=== PATIENT | male | born 1995 | race Caucasian/White ===

== ENCOUNTER 2019-01-01 11:33 | Emergency (ER) | payer BC, SELFPAY ==
[2019-01-01] MEDS ORDERED: FENTANYL CITR 100 MCG/2 ML ONE (11:46)
[2019-01-01] MEDS ORDERED: HYDROMORPHONE HCL 1 MG/ML INJ ONE ×2 (11:50→12:47)
[2019-01-01] MEDS ORDERED: ONDANSETRON 4 MG/2 ML VIAL ONE (11:55)
[2019-01-01] MEDS ORDERED: NA CHLORIDE 0.9% 1,000 ML ONE (12:19)
--- NOTE | 2019-01-01 13:06 | RAD REPORT ---
EXAM DESCRIPTION: RAD - Ankle Right 3 View - 01/01/2019 12:45 pm CLINICAL HISTORY: Right ankle pain FINDINGS: Medial clear space is widened indicating an injury to the deltoid ligament. Comminuted mildly to moderately displaced fracture involves the proximal to mid fibula.
--- NOTE | 2019-01-01 13:07 | RAD REPORT ---
EXAM DESCRIPTION: RAD - Tib Fib Right - 01/01/2019 12:46 pm CLINICAL HISTORY: Right leg pain . FINDINGS: Medial clear space is widened indicating an injury to the deltoid ligament. Comminuted mildly to moderately displaced fracture involves the proximal to mid fibula.
--- NOTE | 2019-01-01 13:09 | RAD REPORT ---
EXAM DESCRIPTION: RAD - Knee Right 3 View - 01/01/2019 12:45 pm CLINICAL HISTORY: Right knee pain FINDINGS: Linear bony/calcific density adjacent to the distal medial diametaphysis right femur may b e the sequela of old trauma. It is unlikely to be acute. This should correlated clinically. Significant joint effusion is not present. No dislocation Splint mildly obscures detail.
--- NOTE | 2019-01-01 13:24 | ER ---
Nurse's Notes 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 11:30 Transition of care: patient was not received from another setting of care. Onset of hj symptoms was January 01, 2019. Risk Assessment: Do you want to hurt yourself or someone else? Patient reports no desire to harm self or others. Initial Sepsis Screen: Does the patient meet any 2 criteria? No. Patient's initial sepsis screen is negative. Does the patient have a suspected source of infection? No. Patient's initial sepsis screen is negative. Care prior to arrival: None. 11:30 Method Of Arrival: EMS: [facility] 11:30 Acuity: CARISA 2 hj Triage Assessment: 11:30 General: Appears in no apparent distress. uncomfortable, Behavior is cooperative, hj appropriate for age, anxious. Pain: Complains of pain in right ankle and anterior aspect of right ankle Pain currently is 10 out of 10 on a pain scale. 11:30 Musculoskeletal: hj Historical: - Allergies: 11:46 PENICILLINS; hj - Home Meds: 11:46 None [Active]; hj - PMHx: 11:46 None; hj - PSHx: 11:46 None; hj - Immunization history:: Adult Immunizations up to date. - Social history:: Smoking status: Patient/guardian denies using tobacco, Patient/guardian denies using alcohol. - Ebola Screening: : Patient negative for fever greater than or equal to 101.5 degrees Fahrenheit, and additional compatible Ebola Virus Disease symptoms Patient denies exposure to infectious person Patient denies travel to an Ebola-affected area in the 21 days before illness onset. Screenin:47 Abuse screen: Denies threats or abuse. Denies injuries from another. Nutritional hj screening: No deficits noted. Tuberculosis screening: No symptoms or risk factors identified. Fall Risk None identified. Assessment: 11:30 General: Appears in no apparent distress. uncomfortable, Behavior is cooperative, hj appropriate for age, anxious. Pain: Complains of pain in anterior aspect of right ankle and right ankle. Neuro: Level of Consciousness is awake, alert, obeys commands, Oriented to person, place, time, situation, Appropriate for age. Cardiovascular: Capillary refill < 3 seconds Patient's skin is warm and dry. Respiratory: Airway is patent Respiratory effort is even, unlabored, Respiratory pattern is regular, symmetrical. GI: No signs and/or symptoms were reported involving the gastrointestinal system. : No signs and/or symptoms were reported regarding the genitourinary system. EENT: No signs and/or symptoms were reported regarding the EENT system. Derm: No signs and/or symptoms reported regarding the dermatologic system. Musculoskeletal: Reports pain in right leg and anterior aspect of right ankle and right ankle. 11:32 Reassessment: TRAUMA ALERT CALLED. 12:30 Reassessment: Patient and/or family updated on plan of care and expected duration. Pain hj level reassessed. Patient is alert, oriented x 3, equal unlabored respirations, skin warm/dry/pink. Patient states feeling better. Patient states symptoms have improved. 13:30 Reassessment: Patient and/or family updated on plan of care and expected duration. Pain hj level reassessed. Patient is alert, oriented x 3, equal unlabored respirations, skin warm/dry/pink. for D/C;. 13:37 Reassessment: PT D/C HOME VIA WHEELCHAIR WITH FAMILY, DX WITH COMMINUTED FIBULA FX. bp Vital Signs: 11:30 BP 118 / 79; Pulse 71; Resp 18; Temp 98.2(TE); Pulse Ox 100% on R/A; Weight 108.86 kg; hj Height 5 ft. 10 in. (177.80 cm); Pain 1010; 11:30 Body Mass Index 34.44 (108.86 kg, 177.80 cm) ED Course: 11:30 Patient has correct armband on for positive identification. Bed in low position. Call light in reach. Side rails up X2. 11:30 Inserted saline lock: 18 gauge in right antecubital area, using aseptic technique. 11:30 Orthoglass splint: stirrup splint applied on right leg. bp 11:36 Patient arrived in ED. hb 11:38 Ivan Harden MD is Attending Physician. gs 11:46 Triage completed. hj 11:47 Arm band placed on right wrist. hj 11:48 Braxton Linares, OG is Primary Nurse. bp 12:45 Ankle Right 3 View XRAY In Process Unspecified. EDMS 12:45 Knee Right 3 View XRAY In Process Unspecified. EDMS 12:46 Tib Fib Right XRAY In Process Unspecified. EDMS 13:19 Checo Connor MD is Referral Physician. gs 13:28 No provider procedures requiring assistance completed. IV discontinued, intact, hj bleeding controlled, No redness/swelling at site. Pressure dressing applied. 13:39 Crutch training done. bp Administered Medications: 11:30 Drug: fentaNYL (PF) 100 mcg Route: IVP; Site: right antecubital; hj 11:54 Follow up: Response: Pain is decreased hj 11:35 Drug: Dilaudid 1 mg Route: IVP; Site: right antecubital; hj 11:54 Follow up: Response: No adverse reaction; Pain is decreased hj 11:40 Drug: Zofran 4 mg Route: IVP; Site: right antecubital; hj 11:54 Follow up: Response: No adverse reaction hj 11:49 Not Given (Duplicate Order): Dilaudid 1 mg IVP once bp 11:49 Not Given (Duplicate Order): fentaNYL (PF) 100 mcg IVP once bp 12:00 Drug: NS 0.9% 1000 ml Route: IV; Rate: 1 bolus; Site: right antecubital; bp 13:30 Follow up: IV Status: Completed infusion; IV Intake: 1000ml hj 12:26 Drug: Dilaudid 1 mg Route: IVP; Site: right antecubital; hj 12:35 Follow up: Response: No adverse reaction hj 13:31 Follow up: Response: No adverse reaction; Pain is decreased hj Intake: 13:30 IV: 1000ml; Total: 1000ml. hj Outcome: 13:24 Discharge ordered by . gs 13:28 Discharged to home with crutches, with family. hj 13:28 Condition: stable 13:28 Discharge instructions given to patient, family, Instructed on discharge instructions, follow up and referral plans. medication usage, Demonstrated understanding of instructions, follow-up care, medications, crutch walking, Prescriptions given X 1. 13:39 Patient left the ED. bp Signatures: Dispatcher [employer] EDMS Jamie Schultz RN RN hj Baxter, Heather, RN RN hb Starr, Gregory, MD MD gs Peltier, Brian, RN RN bp
--- NOTE | 2019-01-01 13:25 | EDPHYS ---
Physician Documentation [facility] Name: Kai Alonzo Age: 23 yrs Sex: Male : 1995 Arrival Date: 01/01/2019 Time: 11:36 Bed 6 Private MD: ED Physician Ivan Harden HPI: 01/01 13:27 This 23 yrs old Male presents to ER via EMS with complaints of Ankle Injury. gs 13:27 The patient presents with a deformity, an injury. The complaints affect the right gs ankle. Onset: The symptoms/episode began/occurred acutely, just prior to arrival. Context: resulted from the patient falling, skim boarding, The mechanism of injury is unknown. Associated signs and symptoms: Pertinent positives: swelling. Modifying factors: the symptoms are aggravated by movement. Severity of symptoms: At their worst the symptoms were incapacitating, in the emergency department the symptoms are unchanged. The patient has not experienced similar symptoms in the past. Historical: - Allergies: 11:46 PENICILLINS; hj - Home Meds: 11:46 None [Active]; hj - PMHx: 11:46 None; hj - PSHx: 11:46 None; hj - Immunization history:: Adult Immunizations up to date. - Social history:: Smoking status: Patient/guardian denies using tobacco, Patient/guardian denies using alcohol. - Ebola Screening: : Patient negative for fever greater than or equal to 101.5 degrees Fahrenheit, and additional compatible Ebola Virus Disease symptoms Patient denies exposure to infectious person Patient denies travel to an Ebola-affected area in the 21 days before illness onset. ROS: 13:27 All other systems are negative. gs Exam: 13:27 Head/Face: Normocephalic, atraumatic. Eyes: Pupils equal round and reactive to light, gs extra-ocular motions intact. Lids and lashes normal. Conjunctiva and sclera are non-icteric and not injected. Cornea within normal limits. Periorbital areas with no swelling, redness, or edema. ENT: Nares patent. No nasal discharge, no septal abnormalities noted. Tympanic membranes are normal and external auditory canals are clear. Oropharynx with no redness, swelling, or masses, exudates, or evidence of obstruction, uvula midline. Mucous membranes moist. Neck: Trachea midline, no thyromegaly or masses palpated, and no cervical lymphadenopathy. Supple, full range of motion without nuchal rigidity, or vertebral point tenderness. No Meningismus. Chest/axilla: Normal chest wall appearance and motion. Nontender with no deformity. No lesions are appreciated. Cardiovascular: Regular rate and rhythm with a normal S1 and S2. No gallops, murmurs, or rubs. Normal PMI, no JVD. No pulse deficits. Respiratory: Lungs have equal breath sounds bilaterally, clear to auscultation and percussion. No rales, rhonchi or wheezes noted. No increased work of breathing, no retractions or nasal flaring. Abdomen/GI: Soft, non-tender, with normal bowel sounds. No distension or tympany. No guarding or rebound. No evidence of tenderness throughout. Back: No spinal tenderness. No costovertebral tenderness. Full range of motion. Skin: Warm, dry with normal turgor. Normal color with no rashes, no lesions, and no evidence of cellulitis. 13:27 Constitutional: The patient appears alert, awake, in obvious distress, severely distressed. 13:27 Musculoskeletal/extremity: Perfusion: the patient is warm, Joints: the right ankle displays deformity, dislocation, ligament laxity, limited range of motion, pain at rest, painful range of motion, tenderness. 13:27 Skin: Appearance: Color: pale, right ankle. Vital Signs: 11:30 BP 118 / 79; Pulse 71; Resp 18; Temp 98.2(TE); Pulse Ox 100% on R/A; Weight 108.86 kg; Height 5 ft. 10 in. (177.80 cm); Pain 10/10; 11:30 Body Mass Index 34.44 (108.86 kg, 177.80 cm) Procedures: 13:27 Splinting: Splint applied to right ankle using Orthoglass splint, applied by tech. post reduction film - reveals normal alignment, Examined by me, post splint application: neurovascular intact, 2+ distal pulses palpable, brisk capillary refill noted, Patient tolerated well. Reduction: of the right ankle, using traction, manipulation, Immobilized with OCL splint, Patient tolerated well. Post reduction film - reveals normal alignment. Joint Treatment:. MDM: 11:38 Patient medically screened. 13:27 Differential diagnosis: fracture, sprain, dislocation. Data reviewed: vital signs, nurses notes. Counseling: I had a detailed discussion with the patient and/or guardian regarding: the historical points, exam findings, and any diagnostic results supporting the discharge/admit diagnosis. Response to treatment: the patient's symptoms have markedly improved after treatment. Physician consultation: Checo Connor MD and will see patient in office. 01/01 11:43 Order name: Ankle Right 3 View XRAY; Complete Time: 13:18 gs 01/01 11:44 Order name: Knee Right 3 View XRAY; Complete Time: 13:18 gs 01/01 12:11 Order name: Tib Fib Right XRAY; Complete Time: 13:18 gs 01/01 11:44 Order name: Splint - Ankle: Orthoglass: Stirrup; Complete Time: 11:49 gs Administered Medications: 11:30 Drug: fentaNYL (PF) 100 mcg Route: IVP; Site: right antecubital; hj 11:54 Follow up: Response: Pain is decreased hj 11:35 Drug: Dilaudid 1 mg Route: IVP; Site: right antecubital; hj 11:54 Follow up: Response: No adverse reaction; Pain is decreased hj 11:40 Drug: Zofran 4 mg Route: IVP; Site: right antecubital; hj 11:54 Follow up: Response: No adverse reaction hj 11:49 Not Given (Duplicate Order): Dilaudid 1 mg IVP once bp 11:49 Not Given (Duplicate Order): fentaNYL (PF) 100 mcg IVP once bp 12:00 Drug: NS 0.9% 1000 ml Route: IV; Rate: 1 bolus; Site: right antecubital; bp 13:30 Follow up: IV Status: Completed infusion; IV Intake: 1000ml hj 12:26 Drug: Dilaudid 1 mg Route: IVP; Site: right antecubital; hj 12:35 Follow up: Response: No adverse reaction hj 13:31 Follow up: Response: No adverse reaction; Pain is decreased hj Disposition: 01/01/19 13:24 Discharged to Home. Impression: Comminuted fracture of shaft of fibula, tibia-talus dislocation. - Condition is Stable. - Discharge Instructions: Tibial and Fibular Fracture, Adult, Ankle Dislocation, [id number]. - Prescriptions for Tylenol- Codeine #4 300-60 mg Oral Tablet - take 1 tablet by ORAL route every 6 hours As needed; 16 tablet. - Medication Reconciliation Form, Thank You Letter, Antibiotic Education, Prescription Opioid Use form. - Follow up: Checo Connor MD; When: 2 - 3 days; Reason: Re-evaluation by your physician. Signatures: Dispatcher [employer] EDMS Jamie Schultz RN RN Ivan Harden MD MD Braxton Linares RN RN bp Corrections: (The following items were deleted from the chart) 13:39 13:24 01/01/2019 13:24 Discharged to Home. Impression: Comminuted fracture of shaft of bp fibula; tibia-talus dislocation. Condition is Stable. Forms are Medication Reconciliation Form, Thank You Letter, Antibiotic Education, Prescription Opioid Use. Follow up: Checo Connor; When: 2 - 3 days; Reason: Re-evaluation by your physician. gs
== END 2019-01-01 13:39 | disposition home or self-care (01) ==
LOC: ER 11:33
PROC: 0QSJXZZ Reposition Right Fibula, External Approach (ICD-10-PCS; principal; 2019-01-01)
DX: S93.04XA Dislocation of right ankle joint, initial encounter (principal); S82.491A Other fracture of shaft of right fibula, initial encounter for closed fracture; W19.XXXA Unspecified fall, initial encounter; Y93.89 Activity, other specified; Y92.9 Unspecified place or not applicable; Z88.0 Allergy status to penicillin
CPT/HCPCS: 96361; 96374; 96375; 99284; J1170; J2405; J3010; J7030